=== PATIENT | female | born 1995 | race Two or more races ===

== ENCOUNTER 2019-05-03 04:16 | Emergency (ER) | payer BC ==
[~2019-05-03] VITALS: Ht 152.4 cm; Wt 49.9 kg
--- NOTE | 2019-05-03 04:33 | NUR ---
Patient ambulating with steady gait. A&O x4. c/o nausea, vomiting x8, diarrhea x3 that started at 2200. Patient states that she had eaten somethin out of the ordinary but nothing new at around 2000. Breathing even and unlabored. denies any cough or SOB. Speech is clear and able to make needs known / follow commands. Denies any distress. mother at bedside.
--- NOTE | 2019-05-03 04:35 | NUR ---
Dr. Ba at bedside for MSE
[2019-05-03] MEDS ORDERED: ONDANSETRON 4 MG/2 ML VIAL ONE (04:41)
[2019-05-03] MEDS ORDERED: ONDANSETRON 4 MG/2 ML VIAL IV ONE (04:45)
[2019-05-03] MEDS ORDERED: IV NORMAL SALINE 1000 ML BAG IV ONE (04:45)
[2019-05-03 05:03] LABS: BASOPHILS % (AUTO) 0.2 % (0.0-2.0); EOSINOPHILS # (AUTO) 0.1 K/uL (0.0-0.7); EOSINOPHILS % (AUTO) 0.4 % (0.0-7.0); HEMOGLOBIN 14.3 g/dL (10.9-14.3); LYMPHOCYTES # (AUTO) 0.3 K/uL (20.0-40.0); LYMPHOCYTES % (AUTO) 2.3 % (20.5-51.5); MEAN CORPUSCULAR HEMOGLOBIN 28.3 uug (24.7-32.8); MEAN CORPUSCULAR HGB CONC 33 g/dL (32.3-35.6); MONOCYTES # (AUTO) 0.8 K/uL (2.0-10.0); MONOCYTES % (AUTO) 5.7 % (0.0-11.0); NEUTROPHILS # (AUTO) 12.6 K/uL (1.8-8.9); NEUTROPHILS % (AUTO) 91.4 % (38.5-71.5); PLATELET COUNT (AUTO) 300 K/uL (179-408); RED BLOOD CELL COUNT(AUTO) 5.06 MIL/uL (3.63-4.92); WHITE BLOOD COUNT (AUTO) 13.8 K/uL (3.8-11.8)
[2019-05-03 05:10] LABS: CARBON DIOXIDE 29 mmol/L (21-32); CHLORIDE 102 mmol/L (98-107); GLUCOSE 153 mg/dL (74-106); POTASSIUM 4.4 mmol/L (3.5-5.1); UREA NITROGEN, BLOOD 9 mg/dL (7-18)
[2019-05-03 05:15] LABS: ALANINE AMINOTRANSFERASE 24 U/L (14-59); ALKALINE PHOSPHATASE 50 U/L (50-136); ASPARTATE AMINOTRANSFERASE 18 U/L (15-37); BILIRUBIN,DIRECT 0.1 mg/dL (0.0-0.2); BILIRUBIN,TOTAL 0.4 mg/dL (0.2-1.0); TOTAL PROTEIN, SERUM 8.3 g/dL (6.4-8.2)
--- NOTE | 2019-05-03 05:37 | NUR ---
IV removed. Catheter intact and site benign. Pressure and 4x4 gauze applied to site. No bleeding noted. Patient discharged to home in stable conditon. Written and verbal after care instructions given. Patient verbalizes understanding of instructions. Patient ambulating with steady gait. Patient's mom to take her home
[2019-05-03 05:39] VITALS: BP 118/76
== END 2019-05-03 05:37 | disposition home or self-care (01) ==
LOC: ER 04:20
DX: A08.4 Viral intestinal infection, unspecified (principal); E86.0 Dehydration
CPT/HCPCS: 36415; 80048; 80076; 84702; 85025; 96374; 99283; J2405; A4663; J7030